=== PATIENT | female | born 1980 | race African-American/Black ===

== ENCOUNTER 2019-11-17 23:32 | Emergency (ER) | payer OTHER ==
[~2019-11-17] VITALS: Ht 165.1 cm; Wt 51.3 kg
[~2019-11-17 23:32] MED LIST: ANAPROX DS550 MG PO; BIRTH CONTROL PO; BIRTH CONTROL1 EAC1 PO; DEPO PROVER150 MG/M1 IM; FIORICET 325 MG1 TAB PO; HYDR12.5C PO; OXYCODONE30 MG PO; SKELAXIN800 MG PO; XANAX1 MG PO; XANAX2 MG PO
[2019-11-18] MEDS ORDERED: NORCO 5-325 TA1 EACH PO (00:52)
[2019-11-18] MEDS ORDERED: IBU800 MG PO (00:52)
== END 2019-11-18 01:17 | disposition home or self-care (01) ==
LOC: ED 23:32
DX: M54.5 Low back pain (principal); M54.6 Pain in thoracic spine; F41.9 Anxiety disorder, unspecified; Z79.899 Other long term (current) drug therapy

== ENCOUNTER 2020-10-09 18:40 | Emergency (ER) | payer OTHER ==
[~2020-10-09] VITALS: Ht 165.1 cm; Wt 53.5 kg
[~2020-10-09 18:40] MED LIST changes: +IBU800 MG PO; +NORCO 5-325 TA1 EACH PO
== END 2020-10-09 20:44 | disposition left against medical advice (07) ==
LOC: ED 18:40
DX: M25.512 Pain in left shoulder (principal); Z53.21 Procedure and treatment not carried out due to patient leaving prior to being seen by health care provider; W01.0XXA Fall on same level from slipping, tripping and stumbling without subsequent striking against object, initial encounter; Y93.89 Activity, other specified; Y92.89 Other specified places as the place of occurrence of the external cause; Y99.8 Other external cause status

== ENCOUNTER 2020-10-18 02:17 | Emergency (ER) | payer OTHER ==
[~2020-10-18] VITALS: Ht 165.1 cm; Wt 53.5 kg
[2020-10-18 04:40] LABS: BASO % 0.3 % (0.0-1.0); EOS # 0.1 10*3/uL (0.0-0.4); EOS % 1.1 % (1.0-4.0); HEMATOCRIT 38.4 % (37.0-47.0); LYMPH # 4.9 10*3/uL (1.3-4.4); MEAN CELL VOLUME 92.1 fl (81.0-99.0); MEAN CORPUSCULAR HGB 31.2 pg (27.0-31.0); MEAN CORPUSCULAR HGB CONC 33.9 g/dl (33.0-37.0); MEAN PLATELET VOLUME 10.5 fl (9.6-12.3); MONO # 0.8 10*3/uL (0.1-1.0); MONO % 6.2 % (3.0-9.0); NEUT # 6.8 10*3/uL (2.3-7.9); NEUT % 53.2 % (47.0-73.0); PLATELET COUNT AUTOMATED 226 10*3/uL (130-400); RED BLOOD COUNT 4.17 10*6/uL (4.10-5.10); WHITE BLOOD COUNT 12.7 10*3/uL (4.8-10.8)
[2020-10-18 04:57] LABS: ALBUMIN 3.5 gm/dl (3.1-4.5); ALKALINE PHOSPHATASE 95 U/L (45-117); BUN 17 mg/dl (7-24); CHLORIDE 112 mmol/L (98-107); CREATININE 0.81 mg/dL (0.55-1.02); POTASSIUM 3.6 mmol/L (3.5-5.1); SGOT/AST 15 IU/L (3-35); SGPT/ALT 23 U/L (12-78); SODIUM 142 mmol/L (136-145); TOTAL PROTEIN 6.4 gm/dL (6.4-8.2)
[2020-10-18 04:59] LABS: TROPONIN I < 0.015 ng/ml (<0.045)
== END 2020-10-18 07:52 | disposition home or self-care (01) ==
LOC: ED 02:17
PROVIDERS: Emergency Medicine
DX: M75.52 Bursitis of left shoulder (principal); M79.641 Pain in right hand; M54.2 Cervicalgia; M25.512 Pain in left shoulder; R07.81 Pleurodynia; G43.909 Migraine, unspecified, not intractable, without status migrainosus; F41.9 Anxiety disorder, unspecified; F17.200 Nicotine dependence, unspecified, uncomplicated; Z85.118 Personal history of other malignant neoplasm of bronchus and lung; Z79.899 Other long term (current) drug therapy; Z98.890 Other specified postprocedural states

== ENCOUNTER 2021-07-20 19:19 | Emergency (ER) | payer OTHER ==
[~2021-07-20] VITALS: Ht 165.1 cm; Wt 54.4 kg
[2021-07-20] MEDS ORDERED: MEDROL DOSEPAK4 MG PO (22:05)
== END 2021-07-20 22:21 | disposition home or self-care (01) ==
LOC: ED 19:19
DX: S29.012A Strain of muscle and tendon of back wall of thorax, initial encounter (principal); X50.0XXA Overexertion from strenuous movement or load, initial encounter; Y93.89 Activity, other specified; Y92.89 Other specified places as the place of occurrence of the external cause; Y99.8 Other external cause status